=== PATIENT | female | born 1985 | race American Indian/Alaskan Native ===

== ENCOUNTER 2024-05-29 09:39 | Emergency (ER) | payer OTHER, SELFPAY ==
[2024-05-29 09:54] VITALS: BP 128/91; PULSE 104; RESP 16; TEMP 37.1; O2SAT 99; BMI 23.3
[2024-05-29 10:45] LABS: COVID-19 CEPHEID 4-PLEX PCR Negative (Negative); Influenza A - CEPHEID Flu A POSITIVE (NEGATIVE); Influenza B - CEPHEID Flu B NEGATIVE (NEGATIVE); Respiratory Syncytial Virus Negative (Negative)
--- NOTE | 2024-05-29 11:38 | ED_ITS ---
HPI - URI/Sore Throat <Paty Lott PA-C - Last Filed: 05/29/24 13:57> General Chief Complaint: Upper Respiratory Symptoms Stated Complaint: Cold x7 days/fever/difficulty breathing Time Seen by Provider: 05/29/24 10:55 History of Present Illness HPI Narrative: Ms. Best is a pleasant 38-year-old female with no reported past medical history who presents to the emergency department for cold-like symptoms x2 days. She is here with her daughter who is also checked in as a patient for the same symptoms. Reports that for the last 2 days she has had fever, dry cough, shortness of breath, body aches. She has been having some nausea but no vomiting. Known sick contact is her 2 younger daughters. She denies chest pain, abdominal pain, vomiting, diarrhea, dysuria, ear pain, sore throat. She smokes marijuana occasionally, does not smoke tobacco. Related Data Previous Rx's Medication Instructions Recorded benzonatate 100 mg capsule 100 mg PO TID PRN cough #20 caps 05/29/24 ondansetron 4 mg disintegrating 4 mg PO Q8H PRN nausea and 05/29/24 tablet vomiting #14 tabs Allergies Allergy/AdvReac Type Severity Reaction Status Date / Time No Known Drug Allergies Allergy Verified 05/29/24 09:56 Review of Systems <Paty Lott PA-C - Last Filed: 05/29/24 13:57> Review of Systems ROS Unobtainable: All systems reviewed & are unremarkable except as noted in HPI and below Patient History <Paty Lott PA-C - Last Filed: 05/29/24 13:57> Social History Smoking Status: Never smoker Smoking Status: Never smoker Exam <Paty Lott PA-C - Last Filed: 05/29/24 13:57> Narrative Exam Narrative: GENERAL: 38 year old patient appears stated age. Well-developed patient, in no acute distress. HEAD: Atraumatic. Normocephalic. EYES: Extraocular motions intact. No scleral icterus. No injection or drainage. ENT: Normal TMs BL. Nose without bleeding, purulent drainage. Throat without erythema, tonsillar hypertrophy or exudate. Airway patent. NECK: Trachea midline. Cervical ROM intact. CARDIOVASCULAR: Regular rate and rhythm. RESPIRATORY: ?Nonlabored respirations. ?Speaking in clear, full sentences. ?Clear to auscultation. Breath sounds equal bilaterally. No wheezes, rales, or rhonchi. ? NEURO: AOx3. ?Clear speech. ?Moves all 4 extremities appropriately. SKIN: No rash or erythema of visible areas Initial Vital Signs Initial Vital Signs: Vital Signs Temperature 98.8 F 05/29/24 09:54 Pulse Rate 104 H 05/29/24 09:54 Respiratory Rate 16 05/29/24 09:54 Blood Pressure 128/91 H 05/29/24 09:54 Pulse Oximetry 99 05/29/24 09:54 Oxygen Delivery Method Room Air 05/29/24 09:54 <Abad Bullock MD - Last Filed: 05/29/24 20:52> Initial Vital Signs Initial Vital Signs: Vital Signs Temperature 98.8 F 05/29/24 09:54 Pulse Rate 104 H 05/29/24 09:54 Respiratory Rate 16 05/29/24 09:54 Blood Pressure 128/91 H 05/29/24 09:54 Pulse Oximetry 99 05/29/24 09:54 Oxygen Delivery Method Room Air 05/29/24 09:54 Course <Paty Lott PA-C - Last Filed: 05/29/24 13:57> Orders Ordered: ED Orders 05/29/24 10:00 Covid-19 + FLU A/B + RSV - PCR Stat Vital Signs Vital signs: Vital Signs - 8 hr 05/29/24 09:54 05/29/24 12:02 Temperature 98.8 F 99.6 F Pulse Rate 104 H 85 Respiratory Rate 16 16 Blood Pressure 128/91 H Pulse Oximetry 99 98 Oxygen Delivery Method Room Air Room Air <Abad Bullock MD - Last Filed: 05/29/24 20:52> Orders Ordered: ED Orders 05/29/24 10:00 Covid-19 + FLU A/B + RSV - PCR Stat Vital Signs Vital signs: Vital Signs - 8 hr 05/29/24 09:54 05/29/24 12:02 Temperature 98.8 F 99.6 F Pulse Rate 104 H 85 Respiratory Rate 16 16 Blood Pressure 128/91 H Pulse Oximetry 99 98 Oxygen Delivery Method Room Air Room Air MDM - URI/Sore Throat <Paty Lott PA-C - Last Filed: 05/29/24 13:57> Medical Records Attestation: I reviewed the patient's medical records. Lab Data Labs: Lab Results 05/29/24 Range/Units 10:00 SARS-CoV-2 (PCR) Negative (Negative) Influenza A (RT-PCR) Flu a positive H (NEGATIVE) Influenza B (RT-PCR) Flu b negative (NEGATIVE) RSV (PCR) Negative (Negative) [facility] Narrative Medical decision making narrative: 38-year-old female with no reported past medical history who presents to the emergency department for cold-like symptoms x2 days. She is here with her daughter who is also checked in as a patient for the same symptoms. Differential diagnosis includes but is not limited to viral URI, bronchitis, pneumonia, etc. On exam patient is in no acute distress, nontoxic appearing, vital signs appropriate except for mildly elevated heart rate of 104. Physical exam is reassuring with a clear breath sounds bilaterally, normal heart rate during my exam. Viral swab obtained in triage revealing both patient and her daughter are positive for influenza A. Symptoms have been going on for over 48 hours, she has not an ideal candidate for Tamiflu. She was prescribed Tessalon Perles for cough, Zofran if needed for nausea, recommended increase hydration, ibuprofen/Tylenol, supportive care. She is tolerating oral intake in the ER, nontoxic. VS improved. We discussed strict ER return precautions & follow up with primary care doctor. She verbalized understanding of all information is agreeable with the plan. She is stable for discharge home. <Abad Bullock MD - Last Filed: 05/29/24 20:52> Lab Data Labs: Lab Results 05/29/24 Range/Units 10:00 SARS-CoV-2 (PCR) Negative (Negative) Influenza A (RT-PCR) Flu a positive H (NEGATIVE) Influenza B (RT-PCR) Flu b negative (NEGATIVE) RSV (PCR) Negative (Negative) Discharge Plan Departure Patient Disposition: Home Clinical Impression: Influenza A Instructions: DI for Influenza -- Adult Activity Restrictions/Additional Instructions: Dear Estephania, Today you tested positive for influenza A. This is an upper respiratory virus. I have prescribed you nausea medicine and cough medicine if needed. Please rest, increase hydration with water and or Pedialyte, drink warm tea with honey, and follow up with the primary care doctor. Return to the emergency department if you develop any new or worsening symptoms. Please follow up with your primary care doctor within the next 2-3 days for ER follow-up. (If you do not have a PCP you can call [phone]. ?to schedule an appointment with an [facility] Primary Care Provider) IF YOU DEVELOP ANY NEW OR WORSENING SYMPTOMS, RETURN TO THE ER! Please read the attached instructions, they highlight more specific treatments and interventions for you at home. Thank you for letting me participate in your care, Paty Lott PA-C Prescriptions: New ondansetron 4 mg tablet,disintegrating 4 mg PO Q8H PRN (Reason: nausea and vomiting) Qty: 14 0RF benzonatate 100 mg capsule 100 mg PO TID PRN (Reason: cough) Qty: 20 0RF Rx Instructions: Keep away from children. Stand Alone Forms: Patient Portal/API/Survey, Work Release Note ED Sign-out <Abad Bullock MD - Last Filed: 05/29/24 20:52> [facility] Att[facility]: I was immediately available in the department for consultation. This documentation has been reviewed and I agree with assessment and plan. Supervised by Abad Bullock MD
--- NOTE | 2024-05-29 12:01 | PC.NURSE ---
Pt reports family members in house are sick. Respirations clear and equal bilaterally. Pt reports sinus congestion, fevers, chills. No obvious infections.
[2024-05-29 12:02] VITALS: PULSE 85; RESP 16; TEMP 37.6; O2SAT 98
== END 2024-05-29 12:04 | disposition home or self-care (01) ==
LOC: ED 12:02
PROVIDERS: Emergency Medicine; Emergency Provider Physician Assistant
DX: J10.1 Influenza due to other identified influenza virus with other respiratory manifestations (principal)
CPT/HCPCS: 87635; 87400 ×2; 87420; 0241U; 99281; 99282